=== PATIENT | female | born 1945 | race Caucasian/White ===

== ENCOUNTER → 2016-11-08 | Outpatient (CLI) | payer MEDICARE, BC ==
[2016-11-08 11:50] LABS: AUTOMATED NEUTROPHIL # 3.6 TH/MM3 (1.8-7.7); BASOPHIL % 0.6 % (0.0-2.0); EOSINOPHIL # 0.2 TH/MM3 (0-0.4); EOSINOPHIL % 2.5 % (0.0-4.0); HEMATOCRIT 42.2 % (35.0-46.0); HEMO FLAGS DIFF FINAL; LYMPH % 33.1 % (9.0-44.0); LYMPHOCYTE # 2.1 TH/MM3 (1.0-4.8); MEAN CELL VOLUME 89.9 FL (80.0-100.0); MEAN CORPUSCULAR HEMOGLOBIN 29.9 PG (27.0-34.0); MEAN CORPUSCULAR HGB CONC 33.2 % (32.0-36.0); MONO % 7.3 % (0.0-8.0); NEUT % 56.5 % (16.0-70.0); PLATELET COUNT 331 TH/MM3 (150-450); RED BLOOD COUNT 4.69 MIL/MM3 (4.00-5.30); RED CELL DISTRIBUTION WIDTH 13.3 % (11.6-17.2); WHITE BLOOD COUNT 6.4 TH/MM3 (4.0-11.0)
[2016-11-08 11:58] LABS: BLOOD, URINE NEG (NEG); GLUCOSE,URINE NEG (NEG); KETONE, URINE NEG (NEG); MUCUS URINE FEW /lpf (OCC); NITRITE,URINE NEG (NEG); URINE COLOR YELLOW (YELLW/STRAW)
[2016-11-08 12:09] LABS: WESTERGREN SEDIMENTATION RATE 20 mm/hr (0-30)
[2016-11-08 12:23] LABS: ALT (GPT) 29 U/L (10-53); ANION GAP 8 MEQ/L (5-15); AST (GOT) 23 U/L (15-37); BICARBONATE 26.2 MEQ/L (21.0-32.0); BLOOD UREA NITROGEN 14 MG/DL (7-18); CHLORIDE 107 MEQ/L (98-107); GLOMERULAR FILTRATION RATE 71 ML/MIN (>89); GLUCOSE,FASTING 90 MG/DL (74-99); MAGNESIUM 2.3 MG/DL (1.5-2.5); POTASSIUM 3.8 MEQ/L (3.5-5.1); SODIUM (NA) 141 MEQ/L (136-145)
[2016-11-08 12:48] LABS: ALKALINE PHOSPHATASE 94 U/L (45-117); FERRITIN 38 NG/ML (8-252); HDL CHOLESTEROL 49.9 MG/DL (40.0-60.0); IMMUNOGLOBULIN A 224 MG/DL (85-468); IMMUNOGLOBULIN G 867 MG/DL (650-1610); IMMUNOGLOBULIN M 137 MG/DL (45-276); KAPPA LAMBDA RATIO 1.54 (1.57-3.93); LAMBDA LIGHT CHAIN 147 MG/DL (90-210); LDL CHOLESTEROL 153 MG/DL (0-99); TOTAL BILIRUBIN ADULT 0.3 MG/DL (0.2-1.0); TOTAL PROTEIN SPE 7.2 GM/DL (6.0-7.6); TRANSFERRIN IRON PROFILE 268 MG/DL (200-360)
[2016-11-08 13:31] LABS: HEMOGLOBIN A1a 1.1 %; HEMOGLOBIN A1b 1.1 %; HEMOGLOBIN Ao 84.7 %; HEMOGLOBIN F 0.8 %; HEMOGLOBIN LA1C 2.1 %; HEMOGLOBIN P3 3.9 %
[2016-11-08 15:53] LABS: RAPID PLASMA REAGIN SCREEN NON-REACTIVE (NON-REACTVE)
[2016-11-08 22:36] LABS: ALBUMIN SPE 4.49 GM/DL (3.50-5.00); ALPHA 2 GLOBULIN 0.81 GM/DL (0.22-1.00); BETA GLOBULINS (SPE) 0.76 GM/DL (0.53-1.03)
[2016-11-10 17:35] LABS: ANA SCREEN NEG (NEG)
[2016-11-11 15:53] LABS: VITAMIN B6 13.5 ng/mL (2.1-21.7)
== END ==
LOC: ELAB 08:02
PROVIDERS: ATTEND Psychiatry & Neurology Neurology
DX: E78.2 Mixed hyperlipidemia (principal); E11.65 Type 2 diabetes mellitus with hyperglycemia; D50.9 Iron deficiency anemia, unspecified; R41.3 Other amnesia; M31.6 Other giant cell arteritis; R26.81 Unsteadiness on feet; R25.0 Abnormal head movements; G25.81 Restless legs syndrome; R25.1 Tremor, unspecified; R25.3 Fasciculation; E83.00 Disorder of copper metabolism, unspecified; E83.01 Wilson's disease; A53.0 Latent syphilis, unspecified as early or late; E53.8 Deficiency of other specified B group vitamins
CPT/HCPCS: 36415; 80053; 80061; 81001; 82043; 82607; 82728; 82746; 82784; 83036; 83540; 83550; 83735; 83883; 83921; 84165; 84207; 84425; 84439; 84443; 85025; 85652; 86038; 86334; 86592

== ENCOUNTER → 2017-08-15 | Outpatient (CLI) | payer MEDICARE, BC ==
[2017-08-15 09:32] LABS: ALBUMIN 3.5 GM/DL (3.4-5.0); AST (GOT) 20 U/L (15-37); BLOOD UREA NITROGEN 16 MG/DL (7-18); CHLORIDE 110 MEQ/L (98-107); CHOLESTEROL 198 MG/DL (120-200); CREATININE 0.84 MG/DL (0.50-1.00); GLOMERULAR FILTRATION RATE 67 ML/MIN (>89); GLUCOSE,FASTING 100 MG/DL (74-99); MAGNESIUM 2.2 MG/DL (1.5-2.5); SODIUM (NA) 143 MEQ/L (136-145)
[2017-08-15 09:33] LABS: ALT (GPT) 20 U/L (10-53); IRON (FE) 52 MCG/DL (50-170); TRIGLYCERIDES 105 MG/DL (42-150)
[2017-08-15 09:36] LABS: ALKALINE PHOSPHATASE 82 U/L (45-117); CHOLESTEROL/ HDL RATIO 3.41 RATIO; FERRITIN 54 NG/ML (8-252); LDL CHOLESTEROL 119 MG/DL (0-99); TOTAL BILIRUBIN ADULT 0.2 MG/DL (0.2-1.0); TOTAL IRON BINDING CAPACITY 305 MCG/DL (250-450); TOTAL PROTEIN 6.8 GM/DL (6.4-8.2)
== END ==
LOC: ELAB 07:01
PROVIDERS: ATTEND Psychiatry & Neurology Neurology
DX: R79.0 Abnormal level of blood mineral (principal); D50.0 Iron deficiency anemia secondary to blood loss (chronic); G25.81 Restless legs syndrome; E78.5 Hyperlipidemia, unspecified; K21.9 Gastro-esophageal reflux disease without esophagitis; Z51.81 Encounter for therapeutic drug level monitoring
CPT/HCPCS: 36415; 80053; 80061; 82728; 83540; 83550; 83735; 84466

== ENCOUNTER → 2017-09-30 | Outpatient (CLI) | payer MEDICARE, BC ==
[2017-09-30 12:03] LABS: BILIRUBIN, URINE NEG (NEG); BLOOD, URINE NEG (NEG); GLUCOSE,URINE NEG (NEG); KETONE, URINE NEG (NEG); MUCUS URINE FEW /lpf (OCC); NITRITE,URINE NEG (NEG); SQUAMOUS EPITHELIAL CELL URINE <1 /hpf (0-5); URINE COLOR YELLOW (YELLW/STRAW); URINE LEUKOCYTE ESTERASE NEG (NEG)
[2017-09-30 12:07] LABS: ALBUMIN 3.9 GM/DL (3.4-5.0); AST (GOT) 28 U/L (15-37); BICARBONATE 30.5 MEQ/L (21.0-32.0); BLOOD UREA NITROGEN 23 MG/DL (7-18); CALCIUM 9.1 MG/DL (8.5-10.1); CHLORIDE 104 MEQ/L (98-107); CREATININE 1.19 MG/DL (0.50-1.00); GLOMERULAR FILTRATION RATE 45 ML/MIN (>89); GLUCOSE,FASTING 105 MG/DL (74-99); SODIUM (NA) 140 MEQ/L (136-145)
[2017-09-30 12:08] LABS: ALT (GPT) 35 U/L (10-53); CHOLESTEROL 190 MG/DL (120-200)
[2017-09-30 12:17] LABS: ALKALINE PHOSPHATASE 74 U/L (45-117); CHOLESTEROL/ HDL RATIO 3.39 RATIO; FREE T4 1.07 NG/DL (0.76-1.46); HDL CHOLESTEROL 55.9 MG/DL (40.0-60.0); LDL CHOLESTEROL 114 MG/DL (0-99); TOTAL BILIRUBIN ADULT 0.3 MG/DL (0.2-1.0); TOTAL PROTEIN 7.2 GM/DL (6.4-8.2); TRIGLYCERIDES 102 MG/DL (42-150)
[2017-09-30 15:50] LABS: HEMOGLOBIN A1C 5.9 % (4.3-6.0)
== END ==
LOC: ELAB 08:21
PROVIDERS: ATTEND Internal Medicine
DX: E03.9 Hypothyroidism, unspecified (principal); E13.69 Other specified diabetes mellitus with other specified complication; E78.2 Mixed hyperlipidemia
CPT/HCPCS: 36415; 80053; 80061; 81001; 82043; 83036; 84439; 84443